=== PATIENT | male | born 1985 | race Two or more races ===

== ENCOUNTER 2022-11-27 01:46 | Emergency (ER) | payer OTHER ==
[~2022-11-27] VITALS: Ht 177.8 cm; Wt 68.0 kg
[2022-11-27 03:45] LABS: PH,URINE 5.5 (5.0-8.0); URINE APPEARANCE Cloudy; URINE BILIRRUBIN Small (NEGATIVE); URINE BLOOD Negative; URINE COLOR Orange; URINE GLUCOSE Negative (NEGATIVE); URINE LEUKOCYTE Trace; URINE NITRATE Negative
[2022-11-27 03:48] LABS: URINE BACTERIA 104.5 uL (0.0-1933); URINE EPITHELIAL CELLS 49.9 uL (0.0-38.8); URINE RBC 3.7 uL (0.0-20.8); URINE WBC 40.3 uL (0.0-23.2)
[2022-11-27 03:58] LABS: HEMATOCRIT 46.8 % (39.0-48.0); HEMOGLOBIN 16.4 g/dL (13-16.00); MEAN CELL VOLUME 90.7 fL (80.0-100.00); MEAN CORPUSCULAR HEMOGLOBIN 31.9 pg (27.00-32.0); MEAN CORPUSCULAR HGB CONC 35.1 g/dl (32.0-36.0); PLATELET COUNT 194 K/uL (150-450); RED BLOOD COUNT 5.15 M/uL (4.00-6.00); RED CELL DISTRIBUTION WIDTH 13.7 % (11.5-14.5)
[2022-11-27 04:03] LABS: CREATININE SERUM 1.54 mg/dL (0.70-1.30); GFR 51.08; POTASSIUM 3.69 mEq/L (3.5-5.1)
[2022-11-27 04:07] LABS: URINE MUCUS HEAVY; URINE PROTEIN 300 (NEGATIVE); URINE SPERM FEW
== END 2022-11-27 09:39 | disposition home or self-care (01) ==
LOC: ER 01:46
PROVIDERS: General Practice
DX: K52.89 Other specified noninfective gastroenteritis and colitis (principal); Z91.013 Allergy to seafood